=== PATIENT | male | born 1950 | race Caucasian/White ===

== ENCOUNTER 2017-04-08 11:11 | Inpatient (IN) | payer MEDICARE ==
[~2017-04-08] VITALS: Ht 167.6 cm; Wt 76.9 kg
[~2017-04-08 11:11] MED LIST: ESMOLOL HCL 10 MG/ML 10 ML VIAL IVP ONE; GLUCAGON,HUMAN RECOMBINANT 1 MG VIAL IVP ONE; GLYCOPYRROLATE 0.2 MG/ML VIAL IM ONE; KETOROLAC TROMETHAMINE 60 MG/2 ML VIAL IM ONE; LIDOCAINE HCL/PF 2% 5 ML VIAL INJ ONE; NEOSTIGMINE METHYLSULFATE 1 MG/ML 10 ML VIAL IVP ONE; ONDANSETRON HCL 4 MG/2 ML VIAL IVP ONE; PROPOFOL 1% 20 ML VIAL IVP ONE; ROCURONIUM BROMIDE 10 MG/ML 5 ML VIAL IVP ONE
[2017-04-08] MEDS ORDERED: METF500T4 PO (11:29)
[2017-04-08] MEDS ORDERED: LABE100 PO (11:29)
[2017-04-08] MEDS ORDERED: GLIP5 PO (11:29)
[2017-04-08] MEDS ORDERED: INSU100C14 SQ (11:29)
[2017-04-08] MEDS ORDERED: INSLAN SQ (11:29)
[2017-04-08] MEDS ORDERED: LOSA50TA37 PO (11:34)
[2017-04-08] MEDS ORDERED: ATOR10TA69 PO (11:34)
[2017-04-08] MEDS ORDERED: GLIM4TAB3 PO (11:34)
[2017-04-08] MEDS ORDERED: METF10002 PO (11:34)
[2017-04-08 11:47] LABS: GLUCOSE,POINT OF CARE 252 MG/DL (70-110)
[2017-04-08] MEDS ORDERED: BARIUM SULFATE 0.1% SUSPENSION 450 ML BOTTLE PO ONE (12:00)
[2017-04-08] MEDS ORDERED: ONDANSETRON HCL 4 MG/2 ML VIAL IVP ONE (12:00)
[2017-04-08] MEDS ORDERED: SODIUM CHLORIDE 0.9% 1,000 ML IV ONE ×2 (12:00→16:45)
[2017-04-08] MEDS ORDERED: KETOROLAC TROMETHAMINE 30 MG/ML VIAL IVP ONE (12:00)
[2017-04-08 12:09] LABS: EOSINOPHILS % (AUTO) 0.1 % (1.0-6.0); HEMATOCRIT 37.5 % (41-53); HEMOGLOBIN 12.6 g/dL (13.5-17.5); LYMPHOCYTES # (AUTO) 0.6 K/uL (1.0-4.8); LYMPHOCYTES % (AUTO) 5.3 % (22.0-44.0); MEAN CORPUSCULAR HGB CONC 33.7 G/dL (31.0-37.0); MEAN CORPUSCULAR VOLUME 95 fL (80-100); MONOCYTES # (AUTO) 0.6 K/uL (0.1-1.0); NEUTROPHILS # (AUTO) 10.7 K/uL (1.8-7.7); PLATELET COUNT (AUTO) 216 K/uL (150-450); RED BLOOD CELL COUNT(AUTO) 3.95 MIL/uL (4.50-5.90); RED CELL DISTRIBUTION WIDTH 12.3 % (11.5-14.5)
[2017-04-08 12:14] LABS: NEUTROPHILS % (AUTO) 89.6 % (40.0-70.0)
[2017-04-08 12:20] LABS: ANION GAP 8 mmol/L (8-16); CALCIUM, TOTAL 8.8 mg/dL (8.8-10.5); CARBON DIOXIDE 29 mmol/L (22-29); CHLORIDE 102 mmol/L (98-107); CREATININE 0.84 mg/dL (0.60-1.30); GLOMERULAR FILTR. RATE CALC > 60 mL/min (>60); POTASSIUM 4.8 mmol/L (3.5-5.1); SODIUM SERUM 139 mmol/L (136-145); UREA NITROGEN, BLOOD 18 mg/dL (7-18)
[2017-04-08 12:25] LABS: ALANINE AMINOTRANSFERASE 208 U/L (12-78); ALBUMIN 3.6 g/dL (3.4-5.0); ASPARTATE AMINOTRANSFERASE 231 U/L (15-37); BILIRUBIN,TOTAL 2.7 mg/dL (0.1-1.0); TOTAL PROTEIN, SERUM 7.4 g/dL (6.4-8.2)
[2017-04-08 13:12] LABS: APPEARANCE,URINE CLEAR (CLEAR); GLUCOSE, URINE (UA) >=1000 mg/dL (NEGATIVE); KETONES,URINE 15 mg/dL (NEGATIVE); LEUKOCYTE ESTERASE ,URINE NEGATIVE (NEGATIVE); OCCULT BLOOD,URINE NEGATIVE (NEGATIVE); PH,URINE 5.5 (5.0-8.0); PROTEIN,URINE POS 1+ (NEGATIVE)
[2017-04-08 13:29] LABS: ADD UA MICROSCOPIC YES; RBC,URINE None Seen /HPF (0-2); WBC,URINE None Seen /HPF (0-5)
[2017-04-08] MEDS ORDERED: PIPERACILLIN/TAZO 3.375 GM/D5W 50 ML IV ONE (14:00)
[2017-04-08] MEDS ORDERED: ONDANSETRON HCL 4 MG/2 ML VIAL IVP PRN (16:45)
[2017-04-08] MEDS ORDERED: MORPHINE SULFATE 4 MG/ML SYRINGE IVP PRN (16:45)
[2017-04-08 16:46] LABS: BILIRUBIN,TOTAL 2.8 mg/dL (0.1-1.0)
[2017-04-08 16:52] LABS: BILIRUBIN,DIRECT 1.5 mg/dL (0.00-0.20)
[2017-04-08 17:12] LABS: GLUCOSE,POINT OF CARE 213 MG/DL (70-110)
[2017-04-08 17:34] VITALS: BP 135/65
[2017-04-08] MEDS ORDERED: INFLUENZA VIRUS VACCINE QVS 2017-18 (3YR+)/PF 60 MCG/0.5 ML SYRINGE IM ONE (18:15)
[2017-04-08 18:28] LABS: INR 1.1 (0.9-1.1); PROTHROMBIN TIME 11.7 SEC (9.4-11.6)
[2017-04-08] MEDS ORDERED: SODIUM CL IRRIG SOLN BAG 3,000 ML IRRIG ONE (19:01)
[2017-04-08] MEDS ORDERED: BUPIVACAINE HCL/PF 0.25% 30 ML VIAL ONE (19:01)
[2017-04-08] MEDS ORDERED: IOHEXOL 240 MG/ML 20 ML VIAL ONE (19:03)
[2017-04-08] MEDS ORDERED: CefoTEtan DISOD 2 GM/DEXTROSE 50 ML IV ONE (19:25)
[2017-04-08] MEDS ORDERED: RINGERS SOLUTION,LACTATED 1,000 ML IV ONE ×2 (19:26→20:43)
[2017-04-08] MEDS ORDERED: LIDOCAINE HCL 1%/EPI 1:200,000/PF 30 ML VIAL ONE (19:48)
[2017-04-08] MEDS ORDERED: GLUCAGON,HUMAN RECOMBINANT 1 MG VIAL ONE (20:04)
[2017-04-08 21:44] VITALS: BP 122/66
[2017-04-08] MEDS ORDERED: DEXTROSE 50%-WATER 25 GM/50 ML SYRINGE IVP PRN (22:00)
[2017-04-08 22:24] LABS: HEMOGLOBIN A1C 8.9 % (4.5-6.2)
[2017-04-08] MEDS: LABETALOL HCL 100 MG TABLET PO SCH (22:37)
[2017-04-08] MEDS: INSULIN ASPART 100 UNITS/ML SQ PRN (22:38)
[2017-04-08 23:30] VITALS: BP 124/72
[2017-04-08 23:47] LABS: GLUCOSE,POINT OF CARE 236 MG/DL (70-110)
[2017-04-09 04:14] VITALS: BP 116/69
[2017-04-09] MEDS: HYDROCODONE/ACETAMINOPHEN 5-325 MG TABLET PO PRN (05:59)
[2017-04-09] MEDS: INSULIN ASPART 100 UNITS/ML SQ PRN ×4 (06:00→22:16)
[2017-04-09 06:12] LABS: GLUCOSE,POINT OF CARE 198 MG/DL (70-110)
[2017-04-09 06:25] LABS: BASOPHILS % (AUTO) 0.4 % (0.0-2.0); EOSINOPHILS % (AUTO) 0.7 % (1.0-6.0); HEMATOCRIT 34.3 % (41-53); HEMOGLOBIN 11.6 g/dL (13.5-17.5); LYMPHOCYTES % (AUTO) 13.5 % (22.0-44.0); MEAN CORPUSCULAR HEMOGLOBIN 32.2 pg (26.0-34.0); MEAN CORPUSCULAR HGB CONC 33.8 G/dL (31.0-37.0); MEAN CORPUSCULAR VOLUME 95 fL (80-100); MONOCYTES # (AUTO) 0.5 K/uL (0.1-1.0); MONOCYTES % (AUTO) 6.5 % (2.0-9.0); NEUTROPHILS % (AUTO) 78.9 % (40.0-70.0); PLATELET COUNT (AUTO) 185 K/uL (150-450); RED BLOOD CELL COUNT(AUTO) 3.61 MIL/uL (4.50-5.90); RED CELL DISTRIBUTION WIDTH 12.3 % (11.5-14.5); WHITE BLOOD COUNT (AUTO) 7.6 K/uL (4.5-11.0)
[2017-04-09 06:53] LABS: AMYLASE 79 U/L (25-115); CHOL/HDL RATIO 2.7 (4.2-7.3); PHOSPHORUS 3.3 mg/dL (2.5-4.9)
[2017-04-09] MEDS ORDERED: MIDAZOLAM HCL 2 MG/2 ML VIAL IVP ONE (07:47)
[2017-04-09] MEDS ORDERED: FentaNYL CITRATE-PF 100 MCG/2 ML VIAL IVP ONE (07:47)
[2017-04-09 08:03] VITALS: BP 106/58
[2017-04-09 08:42] LABS: ALANINE AMINOTRANSFERASE 285 U/L (12-78); ANION GAP 12 mmol/L (8-16); ASPARTATE AMINOTRANSFERASE 237 U/L (15-37); BILIRUBIN,TOTAL 3.2 mg/dL (0.1-1.0); CALCIUM, TOTAL 7.7 mg/dL (8.8-10.5); CARBON DIOXIDE 25 mmol/L (22-29); CHLORIDE 103 mmol/L (98-107); CREATININE 0.93 mg/dL (0.60-1.30); GLOMERULAR FILTR. RATE CALC > 60 mL/min (>60); POTASSIUM 4.6 mmol/L (3.5-5.1); SODIUM SERUM 140 mmol/L (136-145); TOTAL PROTEIN, SERUM 6.5 g/dL (6.4-8.2); UREA NITROGEN, BLOOD 17 mg/dL (7-18)
[2017-04-09] MEDS: INSULIN GLARGINE,HUM.REC.ANLOG 100 UNITS/ML SQ SCH (08:42)
[2017-04-09] MEDS: LABETALOL HCL 100 MG TABLET PO SCH ×2 (08:45→22:11)
[2017-04-09] MEDS: LOSARTAN POTASSIUM 50 MG TABLET PO SCH (08:45)
[2017-04-09 11:33] VITALS: BP 120/53
[2017-04-09] MEDS ORDERED: GLIMEPIRIDE 4 MG TABLET PO SCH (12:00)
[2017-04-09] MEDS ORDERED: MAGNESIUM SULFATE 4 GM/WATER 100 ML IV PRN (13:30)
[2017-04-09] MEDS ORDERED: MAGNESIUM OXIDE 400 MG TABLET PO PRN (13:30)
[2017-04-09] MEDS ORDERED: MAGNESIUM SULFATE 2 GM in DEXTROSE 5%-WATER 50 ML IV PRN (13:30)
[2017-04-09 14:10] VITALS: BP 131/63
[2017-04-09] MEDS ORDERED: SODIUM CHLORIDE 0.9% 250 ML IV ONE (15:34)
[2017-04-09] MEDS: PIPERACILLIN/TAZO 3.375 GM/D5W 50 ML IV SCH ×2 (16:01→22:22)
[2017-04-09] MEDS: LACTOBAC ACID/BULG/BIFID/THERM TABLET PO SCH ×2 (16:01→20:38)
[2017-04-09 17:37] LABS: GLUCOSE,POINT OF CARE 236 MG/DL (70-110)
[2017-04-09 20:15] VITALS: BP 133/74
[2017-04-09 20:52] LABS: GLUCOSE,POINT OF CARE 208 MG/DL (70-110)
[2017-04-09] MEDS ORDERED: ATORVASTATIN CALCIUM 10 MG TABLET PO SCH (21:00)
[2017-04-09 21:53] LABS: GLUCOSE,POINT OF CARE 262 MG/DL (70-110)
[2017-04-09 23:44] VITALS: BP 130/71
[2017-04-10 03:16] VITALS: BP 129/75
[2017-04-10] MEDS: PIPERACILLIN/TAZO 3.375 GM/D5W 50 ML IV SCH ×2 (04:29→10:05)
[2017-04-10] MEDS: HYDROCODONE/ACETAMINOPHEN 5-325 MG TABLET PO PRN (04:39)
[2017-04-10 05:22] LABS: GLUCOSE,POINT OF CARE 243 MG/DL (70-110)
[2017-04-10] MEDS: INSULIN ASPART 100 UNITS/ML SQ PRN ×2 (06:09→13:06)
[2017-04-10 06:49] LABS: ANION GAP 7 mmol/L (8-16); CALCIUM, TOTAL 7.9 mg/dL (8.8-10.5); CARBON DIOXIDE 27 mmol/L (22-29); CHLORIDE 100 mmol/L (98-107); CREATINE KINASE, TOTAL 141 U/L (39-308); CREATININE 0.93 mg/dL (0.60-1.30); GLOMERULAR FILTR. RATE CALC > 60 mL/min (>60); POTASSIUM 4.1 mmol/L (3.5-5.1); SODIUM SERUM 134 mmol/L (136-145); UREA NITROGEN, BLOOD 11 mg/dL (7-18)
[2017-04-10 06:55] LABS: CREATINE KINASE MB < 0.5 ng/mL (0-5)
[2017-04-10 07:33] VITALS: BP 125/68
[2017-04-10 07:37] LABS: B-TYPE NATRIURETIC PEPTIDE 96 pg/mL (0-100)
[2017-04-10] MEDS: LABETALOL HCL 100 MG TABLET PO SCH (09:00)
[2017-04-10] MEDS: LACTOBAC ACID/BULG/BIFID/THERM TABLET PO SCH (09:12)
[2017-04-10] MEDS: INSULIN GLARGINE,HUM.REC.ANLOG 100 UNITS/ML SQ SCH (09:15)
[2017-04-10] MEDS: LOSARTAN POTASSIUM 50 MG TABLET PO SCH (09:19)
[2017-04-10 10:13] LABS: ALANINE AMINOTRANSFERASE 211 U/L (12-78); ALBUMIN 2.8 g/dL (3.4-5.0); ASPARTATE AMINOTRANSFERASE 91 U/L (15-37); TOTAL PROTEIN, SERUM 6.4 g/dL (6.4-8.2)
[2017-04-10 10:31] LABS: HEPATITIS Bs ANTIGEN SCREEN P Negative (Negative); HEPATITIS C AB SCREEN <0.1 s/co ratio (0.0-0.9)
[2017-04-10] MEDS ORDERED: HYDR-305 PO (11:27)
[2017-04-10] MEDS ORDERED: DOCU-119 PO (11:29)
[2017-04-10 11:39] VITALS: BP 123/61
[2017-04-10 14:13] LABS: GLUCOSE,POINT OF CARE 269 MG/DL (70-110)
[2017-04-11 08:22] LABS: HEPATITIS Bs ANTIGEN SCREEN P Negative (Negative); HEPATITIS C AB SCREEN <0.1 s/co ratio (0.0-0.9)
== END 2017-04-10 15:30 | disposition home or self-care (01) | DRG 417 ==
LOC: EMS 11:17 → 6N 16:53 → 4E 04-09 13:58
PROVIDERS: ADMIT Hospitalist; ATTEND Hospitalist
PROC: BF121ZZ Fluoroscopy of Gallbladder using Low Osmolar Contrast (ICD-10-PCS; 2017-04-08)
PROC: 0FT44ZZ Resection of Gallbladder, Percutaneous Endoscopic Approach (ICD-10-PCS; principal; 2017-04-08 19:30)
DX: K81.0 Acute cholecystitis (principal); K85.10 Biliary acute pancreatitis without necrosis or infection; E44.0 Moderate protein-calorie malnutrition; E11.9 Type 2 diabetes mellitus without complications; I10 Essential (primary) hypertension; I25.10 Atherosclerotic heart disease of native coronary artery without angina pectoris; R74.0 Nonspecific elevation of levels of transaminase and lactic acid dehydrogenase [LDH]; Z79.4 Long term (current) use of insulin; Z82.49 Family history of ischemic heart disease and other diseases of the circulatory system; Z83.3 Family history of diabetes mellitus; Z95.5 Presence of coronary angioplasty implant and graft; Z91.09 Other allergy status, other than to drugs and biological substances
CPT/HCPCS: 74176; 76705; 80074; 82247; 82248; 82948; 82962; 83036; 83735; 84100; 87081; 88304; 93005; 93306; 96361; 96365; 96366; 96375; 99285; J1610; J1815; J1885; J2250; J2405; J2543; J2704; J3010; J3475; J3490; J7030; J7050; J7060; J7120; Q9966